=== PATIENT | female | born 1985 | race Two or more races ===

== ENCOUNTER 2022-04-11 00:19 | Inpatient (IN) | payer MEDICAID ==
[~2022-04-11] VITALS: Ht 162.6 cm; Wt 63.5 kg
[2022-04-11] MEDS ORDERED: PENICILLIN G POT 5MIL/D5 50ML 50 ML IV ONE ×2 (00:40→01:00)
[2022-04-11] MEDS ORDERED: DERMOPLAST 60ML BOTTLE TOP PRN (01:00)
[2022-04-11] MEDS ORDERED: LACT. RINGERS/OXYTOCIN 20UNITS 500 ML IV ONE ×2 (01:00→01:30)
[2022-04-11] MEDS ORDERED: PHISODERM TOP SOLN 240ML BTL TOP PRN (01:00)
[2022-04-11] MEDS ORDERED: LIDOCAINE 2%HCL (LOCAL ANESTH.) INJ 10ml MDV IJ PRN (01:00)
[2022-04-11] MEDS ORDERED: LACTATED RINGER'S 1,000 ML IV SCH (01:00)
[2022-04-11] MEDS ORDERED: WITCH HAZEL-GLYCERIN PAD TOP PRN (01:00)
[2022-04-11] MEDS ORDERED: LACT. RINGERS/OXYTOCIN 20UNITS 1,000 ML IV ONE (01:01)
[2022-04-11 02:15] LABS: Basophils # (auto) 0 10 ^3/uL (0-0.2); Basophils % (auto) 0.2 % (0.0-2.0); Eosinophils # (auto) 0.3 10 ^3/uL (0-0.8); Eosinophils % (auto) 2.1 % (0.0-7.0); Hematocrit 34.3 % (36.0-46.0); Hemoglobin 11.6 g/dL (12.2-16.2); Lymphocytes # (auto) 2.1 10 ^3/uL (0.4-5.4); Lymphocytes % (auto) 14.8 % (10.0-50.0); Mean Corpuscular Hemoglobin 29.4 pg (28.0-32.0); Mean Corpuscular Hgb Conc. 33.8 g/dL (32.0-36.0); Mean Corpuscular Volume 86.9 fL (80.0-100.0); Monocytes # (auto) 0.5 10 ^3/uL (0-1.3); Monocytes % (auto) 3.5 % (0.0-12.0); Neutrophils # (auto) 11.3 10 ^3/uL (1.6-8.6); Neutrophils % (auto) 79.4 % (37.0-80.0); Nucleated Red Blood Cells % 0.1 %; Red Blood Cells 3.95 10^6/uL (4.0-5.20); White Blood Cell 14.2 10^3/uL (4.4-10.8)
[2022-04-11] MEDS ORDERED: LACT. RINGERS/OXYTOCIN 20UNITS 1,000 ML IV SCH (02:15)
[2022-04-11] MEDS ORDERED: TERBUTALINE SULFATE 1 MG/ML 1ML VIAL SC PRN (02:15)
[2022-04-11 02:29] LABS: INR 0.91 (0.9-1.15); Partial Thromboplastin Time 27.6 sec (24.6-33.4)
[2022-04-11 02:36] LABS: Albumin 2.7 g/dL (3.4-5.0); BUN/Creatinine Ratio 9.1; Calcium 8.3 mg/dL (8.5-10.1); Potassium 4.1 mmol/L (3.5-5.1)
[2022-04-11 02:37] LABS: Alcohol, Urine < 3.0 mg/dL (0-10); Amphetamine Screen, Urine NEGATIVE (NEGATIVE); Barbiturate Scree,Urine NEGATIVE (NEGATIVE); Benzodiazephine Screen, Urine NEGATIVE (NEGATIVE); Cannabinoid Screen, Urine NEGATIVE (NEGATIVE); Cocaine Screen, Urine NEGATIVE (NEGATIVE); Opiate Scree,Urine NEGATIVE (NEGATIVE); Phencyclidine Screen, Urine NEGATIVE (NEGATIVE)
[2022-04-11 02:43] LABS: Bilirubin, Total 0.4 mg/dL (0.2-1.0); Total Protein 7.3 g/dL (6.4-8.2)
[2022-04-11] MEDS ORDERED: BUTORPHANOL TARTRATE 2 MG/1 ML VIAL IV PRN (03:15)
[2022-04-11] MEDS ORDERED: PROMETHAZINE HCL 25 MG/ML 1ML IV PRN (03:15)
[2022-04-11] MEDS ORDERED: SODIUM CHLORIDE 0.9% 1,000 ML IV SCH (03:30)
[2022-04-11 03:50] LABS: Urine Bacteria NONE SEEN /hpf (None Seen); Urine Blood 3+ /uL (Negative); Urine Mucus FEW (None Seen); Urine Specific Gravity 1.015 (1.001-1.035); Urine WBC 22 /hpf (0 - 5)
[2022-04-11] MEDS ORDERED: PENICILLIN G POT 5MILLION UNIT VIAL ONE (04:26)
[2022-04-11] MEDS ORDERED: PENICILLIN G POTASSIUM 2,500,000 UNITS in D5W 5% 50 ML IV SCH (05:00)
[2022-04-11] MEDS ORDERED: ACETAMINOPHEN 325 MG TAB PO PRN (05:45)
[2022-04-11] MEDS: IBUPROFEN 600 MG TAB PO PRN ×2 (06:50→17:35)
[2022-04-11 11:00] VITALS: BP 98/54
[2022-04-11 15:01] VITALS: BP 95/50
[2022-04-11] MEDS ORDERED: miSOPROStol 100 mcg TAB PR PRN (16:00)
[2022-04-11] MEDS ORDERED: METHYLERGONOVINE MALEATE 0.2 MG/ML AMP IM ONE (16:00)
[2022-04-11 19:30] VITALS: BP 99/54
[2022-04-11 23:30] VITALS: BP 97/58
[2022-04-12 03:00] VITALS: BP 102/51
[2022-04-12] MEDS ORDERED: TETANUS-DIPTH-ACEL PERTUSSIS 0.5ML SYR Tdap IM ONE (06:00)
[2022-04-12 07:07] LABS: RPR Non Reactive (Non Reactive)
[2022-04-12 07:22] VITALS: BP 89/51
== END 2022-04-12 09:18 | disposition home or self-care (01) | DRG 560 ==
LOC: UNDOADMOB 00:19 → LDRP 00:19 → OBSVTOIN 01:08 → LDRP 03:54
PROVIDERS: ADMIT Obstetrics & Gynecology; ATTEND Midwife
PROC: 10E0XZZ Delivery of Products of Conception, External Approach (ICD-10-PCS; principal; 2022-04-11)
DX: O42.913 Preterm premature rupture of membranes, unspecified as to length of time between rupture and onset of labor, third trimester (principal); Z37.0 Single live birth; Z20.822 Contact with and (suspected) exposure to COVID-19; Z3A.37 37 weeks gestation of pregnancy
CPT/HCPCS: 36415; 59025; 59409; 76805; 80053; 80307; 81001; 81002; 85025; 85610; 85730; 86592; 86703; 86762; 86850; 86900; 86901; 87340; 90715; 94760; 96360; 96361; 96365; 96366; 96372; 96374; 96375; G0378; J2540; J2590; J7060